=== PATIENT | male | born 1965 | race African-American/Black ===

== ENCOUNTER 2020-04-15 07:30 | Inpatient (IN) ==
[2020-04-09 12:24] LABS: Basophils % 0.4 % (0.0-0.8); Eosinophils % 0.7 % (0.00-10.9); Hematocrit 44.9 VOL% (42.0-52.0); Hemoglobin 14.4 GM/DL (14.0-18.0); Immature Granulocytes % 0.4 %; Immature Granulocytes Absolute 0.02 #; Lymphocytes # 1.4 10*3/uL (1.4-4.0); Mean Corpuscular HGB Conc 32.1 GM/DL (32-36); Mean Platelet Volume 9.6 FL (9.6-12.0); Monocytes % 9.2 % (1.7-12.7); Neutrophils % 58.3 % (38.7-73.9); Platelet Count 183 T/CUMM (130-400); Red Blood Count 5.16 MC/CUMM (3.8-5.5); Red Cell Distribution Width 15.6 % (9.3-17.3); White Blood Count 4.6 T/CUMM (4-12)
[2020-04-09 12:49] LABS: Calcium 9.1 MG/DL (8.5-10.1); Osmolality,Calculated 273.7 MOS/KG (273-304)
[2020-04-14 13:08] LABS: Apearance,Urine CLEAR (Clear); Bacteria,Urine Occasional /HPF (Few); Bilirubin,Urine Negative (Negative); Blood, Urine Negative (Negative); Glucose,Urine (UA) Negative (Negative); Ketones,Urine Negative (Negative); Mucus,Urine Occasional /LPF (Occasional); Nitrite,Urine Negative (Negative); Protein,Urine Negative; RBC,Urine <1 /HPF (0-4); Squamous Epithelial Cell,Urine Occasional /HPF (0-10); Urine Color Yellow (Yellow); Urine Specific Gravity 1.017 (1.001-1.035); Urine Urobilinogen < 2.0 EU/DL (0.2-1.0); WBC,Urine <1 /HPF (0-6)
[~2020-04-15 07:30] MED LIST: ALVIMOPAN 12 MG CAPSULE PO ONE; ceFAZolin 1,000 MG in SYRINGE 1 EACH IV ONE
[2020-05-01 12:22] LABS: Basophils % 0.7 % (0.0-0.8); Eosinophils % 0.9 % (0.00-10.9); Hematocrit 45.1 VOL% (42.0-52.0); Hemoglobin 14.5 GM/DL (14.0-18.0); Immature Granulocytes % 0.5 %; Immature Granulocytes Absolute 0.02 #; Lymphocytes # 1.9 10*3/uL (1.4-4.0); Lymphocytes % 43.1 % (21.2-54.2); Mean Corpuscular HGB Conc 32.2 GM/DL (32-36); Mean Corpuscular Volume 87.4 FL (87-102); Mean Platelet Volume 9.5 FL (9.6-12.0); Monocytes % 8.6 % (1.7-12.7); Neutrophils % 46.2 % (38.7-73.9); Platelet Count 216 T/CUMM (130-400); Red Blood Count 5.16 MC/CUMM (3.8-5.5); Red Cell Distribution Width 15.2 % (9.3-17.3); White Blood Count 4.3 T/CUMM (4-12)
[2020-05-01 12:28] LABS: Calcium 9.1 MG/DL (8.5-10.1); Osmolality,Calculated 273.7 MOS/KG (273-304)
[2020-05-01 12:45] LABS: Apearance,Urine CLEAR (Clear); Bilirubin,Urine Negative (Negative); Blood, Urine Small mg/dL (Negative); Glucose,Urine (UA) Negative (Negative); Ketones,Urine Negative (Negative); Mucus,Urine Occasional /LPF (Occasional); Nitrite,Urine Negative (Negative); Protein,Urine Negative; RBC,Urine 1 /HPF (0-4); Squamous Epithelial Cell,Urine Occasional /HPF (0-10); Urine Color Yellow (Yellow); Urine Specific Gravity 1.012 (1.001-1.035); Urine Urobilinogen < 2.0 EU/DL (0.2-1.0)
[2020-05-06] MEDS ORDERED: DIAZEPAM 5 MG TABLET PO ONE (06:35)
[2020-05-06] MEDS ORDERED: FAMOTIDINE 20 MG TABLET PO ONE (06:35)
[2020-05-06] MEDS ORDERED: ALVIMOPAN 12 MG CAPSULE PO ONE (07:11)
[2020-05-06] MEDS ORDERED: ceFAZolin 1,000 MG in SYRINGE 1 EACH IV ONE ×2 (07:12→07:30)
[2020-05-06] MEDS ORDERED: ceFAZolin 1,000 MG VIAL ONE (07:15)
[2020-05-06] MEDS ORDERED: FAMOTIDINE 20 MG TABLET ONE (07:16)
[2020-05-06] MEDS ORDERED: DIAZEPAM 5 MG TABLET ONE (07:16)
[2020-05-06] MEDS ORDERED: LACTATED RINGERS 1,000 ML IV SCH (07:30)
[2020-05-06] MEDS ORDERED: MANNITOL 12.5 GM/50 ML VIAL IV ONE (07:41)
[2020-05-06] MEDS ORDERED: ROPIVACAINE 0.5% 30 ML VIAL ONE (10:49)
[2020-05-06] MEDS ORDERED: ONDANSETRON 4 MG/2 ML VIAL IV PRN ×2 (11:11→12:01)
[2020-05-06] MEDS ORDERED: HYDROmorphone PCA 30 MG/30 ML SYRINGE IV SCH (11:30)
[2020-05-06 11:34] LABS: Apearance,Urine Clear (Clear); Bilirubin,Urine Negative (Negative); Blood, Urine Negative (Negative); Glucose,Urine (UA) Negative (Negative); Ketones,Urine Negative (Negative); Nitrite,Urine Negative (Negative); Protein,Urine Negative; Urine Color Yellow (Yellow); Urine Specific Gravity 1.015 (1.001-1.035); Urine Urobilinogen < 2.0 EU/DL (0.2-1.0)
[2020-05-06] MEDS ORDERED: HYDROmorphone PCA 30 MG/30 ML SYRINGE IV ONE (11:40)
[2020-05-06] MEDS ORDERED: ePHEDrine 50 MG/ML VIAL ONE (11:47)
[2020-05-06] MEDS ORDERED: MIDAZOLAM 2 MG/2 ML VIAL ONE (11:47)
[2020-05-06] MEDS ORDERED: SEVOFLURANE 1 UNIT/15 MINUTE INH ONE (11:47)
[2020-05-06] MEDS ORDERED: LIDOCAINE 2% 5 ML VIAL ONE (11:47)
[2020-05-06] MEDS ORDERED: fentaNYL 250 MCG/5 ML VIAL ONE (11:47)
[2020-05-06] MEDS ORDERED: propofoL 200 MG/20 ML VIAL IV ONE (11:47)
[2020-05-06] MEDS ORDERED: LACTATED RINGERS 2,000 ML IV ONE (11:48)
[2020-05-06] MEDS ORDERED: ACETAMINOPHEN 1,000 MG/100 ML VIAL IV ONE (11:48)
[2020-05-06] MEDS ORDERED: PHENYLEPHRINE 1 MG/10 ML SYRINGE IV ONE (11:48)
[2020-05-06] MEDS ORDERED: ROCURONIUM 100 MG/10 ML VIAL IV ONE (11:48)
[2020-05-06] MEDS ORDERED: ONDANSETRON 4 MG/2 ML VIAL ONE (11:51)
[2020-05-06] MEDS: HYDROmorphone 2 MG/1 ML VIAL IV PRN ×3 (11:51→12:17)
[2020-05-06] MEDS ORDERED: HYDROmorphone 2 MG/1 ML VIAL ONE (11:51)
[2020-05-06] MEDS: SODIUM CHLORIDE 0.9% 1,000 ML IV SCH (14:15)
[2020-05-06] MEDS: DOXAZOSIN 1 MG TABLET PO SCH (20:49)
[2020-05-07 05:32] LABS: Hematocrit 34.6 VOL% (42.0-52.0); Hemoglobin 11.1 GM/DL (14.0-18.0); Immature Granulocytes % 0.2 %; Immature Granulocytes Absolute 0.02 #; Lymphocytes # 0.9 10*3/uL (1.4-4.0); Mean Corpuscular HGB Conc 32.1 GM/DL (32-36); Mean Corpuscular Volume 87.6 FL (87-102); Mean Platelet Volume 9.6 FL (9.6-12.0); Monocytes % 9.3 % (1.7-12.7); Neutrophils % 80.5 % (38.7-73.9); Platelet Count 175 T/CUMM (130-400); Red Blood Count 3.95 MC/CUMM (3.8-5.5); Red Cell Distribution Width 15.7 % (9.3-17.3); White Blood Count 9.2 T/CUMM (4-12)
[2020-05-07 06:06] LABS: Calcium 8.2 MG/DL (8.5-10.1); Osmolality,Calculated 278.4 MOS/KG (273-304)
[2020-05-07] MEDS: DOXAZOSIN 1 MG TABLET PO SCH ×2 (09:26→20:04)
[2020-05-07] MEDS: amLODIPine 10 MG TABLET PO SCH (09:26)
[2020-05-07] MEDS: ROSUVASTATIN 20 MG TABLET PO SCH (09:26)
[2020-05-07] MEDS ORDERED: ALVIMOPAN 12 MG CAPSULE PO SCH (10:13)
[2020-05-07] MEDS ORDERED: MEPERIDINE 50 MG/1 ML VIAL IM PRN (10:15)
[2020-05-07] MEDS: SODIUM CHLORIDE 0.9% 1,000 ML IV SCH (11:22)
[2020-05-07] MEDS: oxyCODONE/ACETAMINOPHEN 5-325 MG TABLET PO PRN ×2 (14:19→20:04)
[2020-05-07] MEDS: ALVIMOPAN 12 MG CAPSULE PO SCH (20:04)
[2020-05-08] MEDS: oxyCODONE/ACETAMINOPHEN 5-325 MG TABLET PO PRN ×3 (00:44→09:37)
[2020-05-08] MEDS: amLODIPine 10 MG TABLET PO SCH (09:37)
[2020-05-08] MEDS: ROSUVASTATIN 20 MG TABLET PO SCH (09:37)
[2020-05-08] MEDS: DOXAZOSIN 1 MG TABLET PO SCH (09:37)
[2020-05-08] MEDS: ALVIMOPAN 12 MG CAPSULE PO SCH (09:38)
[2020-05-08 09:44] VITALS: BP 129/77
== END 2020-05-08 10:00 | disposition home or self-care (01) | DRG 658 ==
LOC: N.SDSINP 05-06 05:47 → N.4E 05-06 12:32
PROVIDERS: ADMIT Urology; ATTEND Urology
PROC: PARNEPH (ICD-10-PCS; 2020-05-06 08:35)